=== PATIENT | female | born 1965 | race Caucasian/White ===

== ENCOUNTER 2017-12-22 09:42 | Day surgery (SDC) | payer BC ==
[2017-12-22] MEDS ORDERED: PROPOFOL 20 ML (11:30)
[2017-12-22] MEDS ORDERED: LIDOCAINE 2% (SDV) 5 ML INJ (11:30)
== END 2017-12-22 13:59 | disposition home or self-care (01) ==
LOC: GIL 09:42
DX: Z12.11 Encounter for screening for malignant neoplasm of colon (principal); K63.5 Polyp of colon; K64.8 Other hemorrhoids; K21.9 Gastro-esophageal reflux disease without esophagitis; I10 Essential (primary) hypertension; E66.01 Morbid (severe) obesity due to excess calories; Z68.34 Body mass index [BMI] 34.0-34.9, adult
CPT/HCPCS: 45380; 88305